=== PATIENT | female | born 1995 | race Caucasian/White ===

== ENCOUNTER 2016-12-20 14:55 | Emergency (ER) ==
[2016-12-20] MEDS ORDERED: NS 1,000 ML IV ONE (15:10)
[2016-12-20] MEDS ORDERED: ZOFRAN IV ONE (15:10)
[2016-12-20] MEDS ORDERED: MORPHINE IV ONE (15:21)
--- NOTE | 2016-12-20 15:26 | PROVIDER DOCUMENTATION ---
HPI-Abdominal Pain/GI Problem - General Chief Complaint: Abdominal Pain Stated Complaint: ABD PAIN/PELVIC PAIN Time Seen by Provider: 12/20/16 15:10 Source: patient Allergies/Adverse Reactions: Patient Allergies Allergy/AdvReac Type Severity Reaction Status Date / Time No Known Allergies Allergy Verified 12/20/16 15:15 Home Medications: Home Medication List Medication Instructions Recorded Confirmed Last Taken Type Norethindrone [Michelle] 0.35 mg PO DAILY 12/20/16 12/20/16 12/19/16 23:00 History - History of Present Illness-ABD Nature of Presenting Problems: Reports General abd pain x 2 hours with nausea. Last BM earlier today. Changed BCP two months ago. Denies diarrhea,v,rectal bleeding. Abdominal Pain Onset Location: reports: generalized abdomen Quality of Pain: reports: aching Severity in ED: reports: moderate Onset/Duration: reports: 2 days ago Timing: reports: getting worse Last BM: this morning Dark Stools Present?: reports: none noticed Rectal Bleeding: reports: none Rectal Pain: reports: none Emesis Description: reports: none Bruising or Bleeding Gums?: No Similar Symptoms Previously?: No Recently seen or treated by another doctor?: No Review of Systems - Adult - REVIEW OF SYSTEMS - ADULT Constitutional: denies: chills, fever, fatique Eyes: reports: no symptoms reported Ears, Nose, Mouth & Throat: denies: ear pain, sinus problem, throat pain Cardiovascular: reports: no symptoms reported Respiratory: reports: no symptoms reported Gastrointestinal: reports: abdominal pain, nausea. denies: diarrhea, poor appetite, vomiting Genitourinary: reports: no symptoms reported Musculoskeletal: reports: no symptoms reported Integumentary: reports: no symptoms reported Neurological: reports: no symptoms reported Psychiatric: reports: no symptoms reported Endocrine: reports: no symptoms reported Hematologic/Lymphatic: reports: no symptoms reported Allergic/Immunologic: reports: no symptoms reported All Other Systems: Reviewed and Negative Past History - Adult - PAST MEDICAL HISTORY-ADULT Review of Records: reports: Nursing Assessment Review, Medications Reviewed Major Childhood Illnesses: reports: denies history - IMMUNIZATION STATUS Childhood Immunizations: See Nurse Assessment Flu Vaccine: See Nurse Assessment - SOCIAL HISTORY Smoking: less than 1 pack/day Provider spent 3-5 mins advising pt. on dangers of tobacco.: Discussed manners to quit use, and f/u contacts for add'l counseling. Substance Use: none/never Physical Exam-General - PHYSICAL EXAM-ADULT Initial Vital Signs Reviewed: Yes - CONSTITUTIONAL General Appearance: appears well, alert, no apparent distress - EYES Eyes: PERRL/EOMI - NECK Neck: non-tender, full range of motion, supple, normal inspection - RESPIRATORY Respiratory: chest non-tender, lungs clear, normal breath sounds - CARDIOVASCULAR Cardiovascular: regular rate, rhythm, no edema, no gallop, no JVD, no murmur - GASTROINTESTINAL (ABDOMEN) Abdominal Exam: normal bowel sounds, soft, no organomegaly, no pulsatile mass, guarding (RLQ), tenderness (ttp Lower abd moderate to severe rlq and llq). negative: distended - MUSCULOSKELETAL Extremity: normal range of motion, non-tender - SKIN Integumentary: normal color, normal turgor, warm/dry - PSYCHIATRIC Psych/Mental Status: normal mood/affect, normal thought content, normal thought process, oriented x 3 Progress - PLAN OF CARE/RESULTS Progress/Plan/Lab Results: Orders Category Date Time Status Saline Loc DIRECTED Care 12/20/16 15:10 Active NPO Diet 12/20/16 15:10 Active AMYLASE [CHEM] Stat Lab 12/20/16 15:25 Ordered CBC WITH ELECTRONIC DIFF [HEME] Stat Lab 12/20/16 15:25 Ordered COMPREHENSIVE METABOLIC PANEL [CHEM] Stat Lab 12/20/16 15:25 Ordered LIPASE [CHEM] Stat Lab 12/20/16 15:25 Ordered MAGNESIUM [CHEM] Stat Lab 12/20/16 15:25 Ordered TEST-URINE [PREG] Stat Lab 12/20/16 15:11 Uncollected PROTIME WITH INR [COAG] Stat Lab 12/20/16 15:25 Ordered PTT [COAG] Stat Lab 12/20/16 15:25 Ordered URINALYSIS W/POSS RFLX CULT [URINALYSIS] Stat Lab 12/20/16 15:10 Uncollected 0.9% Sodium Chloride Inj [Ns] 1,000 ml Med 12/20/16 15:10 Active IV 999 mls/hr Morphine Med 12/20/16 15:21 Discontinued 4 mg IV NOW ONE Ondansetron [Zofran] Med 12/20/16 15:10 Discontinued 4 mg IV NOW ONE Vital Signs - 24 hr 12/20/16 15:07 Temperature 98.1 F Pulse Rate 84 Respiratory 20 Rate Blood Pressure 101/63 O2 Sat by Pulse 100 Oximetry Laboratory Tests 12/20/16 12/20/16 12/20/16 15:22 15:22 15:22 WBC 12.89 H RBC 4.36 Hgb 13.3 Hct 39.3 MCV 90.1 MCH 30.5 MCHC 33.8 RDW Std Deviation 14.2 Plt Count 242 MPV 10.8 H Immature Gran % (Auto) 0.2 Neut % (Auto) 73.3 Lymph % (Auto) 17.4 L [place] % (Auto) 7.5 Eos % (Auto) 1.4 Baso % (Auto) 0.2 Immature Gran # (Auto) 0.02 Neut # (Auto) 9.46 H Lymph # (Auto) 2.24 [place] # (Auto) 0.97 H Eos # (Auto) 0.18 Baso # (Auto) 0.02 PT 10.7 INR 1.01 PTT (Actin FS) 23.2 Sodium 140 Potassium 4.0 Chloride 105 Carbon Dioxide 23 L Anion Gap 12 BUN 10 Creatinine 0.7 Estimated GFR/1.73 m2 > 60 BUN/Creatinine Ratio 14 Glucose 98 Calculated Osmolality 278 Calcium 9.1 Magnesium 1.8 Total Bilirubin 0.60 AST 26 ALT 34 Alkaline Phosphatase 54 Total Protein 6.6 Albumin 3.9 Globulin 2.7 Albumin/Globulin Ratio 1.4 Amylase 62 Lipase 27 Urine Source Urine Color Urine Turbidity Urine pH Ur Specific [place] Urine Protein Ur Glucose (Stick) Ur Ketones (Stick) Urine Blood Urine Nitrite Urine Bilirubin Urobilinogen Dipstick Urine Leukocytes Urine WBC (Auto) Urine RBC (Auto) U Epithel Cells (Auto) Urine Bacteria (Auto) Urine Test 12/20/16 12/20/16 16:12 16:12 WBC RBC Hgb Hct MCV MCH MCHC RDW Std Deviation Plt Count MPV Immature Gran % (Auto) Neut % (Auto) Lymph % (Auto) [place] % (Auto) Eos % (Auto) Baso % (Auto) Immature Gran # (Auto) Neut # (Auto) Lymph # (Auto) [place] # (Auto) Eos # (Auto) Baso # (Auto) PT INR PTT (Actin FS) Sodium Potassium Chloride Carbon Dioxide Anion Gap BUN Creatinine Estimated GFR/1.73 m2 BUN/Creatinine Ratio Glucose Calculated Osmolality Calcium Magnesium Total Bilirubin AST ALT Alkaline Phosphatase Total Protein Albumin Globulin Albumin/Globulin Ratio Amylase Lipase Urine Source CLEAN CATCH Urine Color YELLOW Urine Turbidity CLEAR Urine pH 6.5 Ur Specific [place] 1.021 Urine Protein NEGATIVE Ur Glucose (Stick) NEGATIVE Ur Ketones (Stick) NEGATIVE Urine Blood NEGATIVE Urine Nitrite NEGATIVE Urine Bilirubin NEGATIVE Urobilinogen Dipstick NORMAL Urine Leukocytes NEGATIVE Urine WBC (Auto) <10 Urine RBC (Auto) <10 U Epithel Cells (Auto) <10 Urine Bacteria (Auto) 1+ Urine Test NEGATIVE Pt and MD discussed that if pt started experiencing any more distress or discomfort that now or any abnormal symptoms to return to ER other [facility] follow up with [facility] DEVELOPMENT MANAGER pt agreed - CT/MRI 1 CT Study: Abdomen Impression: Abnormal (?ruptured right ovarian cyst or PID; normal appendix) Departure - Departure Time of Disposition Order: 17:34 DIAGNOSIS: Abdominal pain Qualifiers: Abdominal location: right lower quadrant Qualified Code(s): R10.31 - Right lower quadrant pain Ovarian cyst Qualifiers: Laterality: bilateral Qualified Code(s): N83.201 - Unspecified ovarian cyst, right side; N83.202 - Unspecified ovarian cyst, left side Disposition: HOME 01 Certified Medical Emergency: Emergent Condition: Stable Additional Instructions: Follow up with ED Follow Up Instructions: You have been treated by a care provider in the Emergency Department. These instructions are being provided to you so you can have an understanding of how to care for yourself upon discharge. Upon discharge from the Emergency Department, you are responsible for making arrangements for follow-up care by a physician of your choice. Take all prescribed medications as directed. Return to the Emergency Department immediately for any new or worsening symptoms. You may call the Physician Referral phone number at [phone] to obtain a list of Physicians who are taking new patients. Referrals: None,PCP [Primary Care Provider] - Daniel Cazares MD [STAFF PHYSICIAN] - Attestation - Scribe Verification/Attestation Scribe:: Susan Zhang Acting as Scribe for:: Shine Sanchez Scribe documention review:: This chart was documented by a scribe and accurately reflects the service the provider performed and the decisions made by the provider.
[2016-12-20 15:31] LABS: MANUAL DIFF NEEDED? NO
[2016-12-20] MEDS ORDERED: DILAUDID IV ONE ×2 (15:35→15:40)
[2016-12-20] MEDS ORDERED: DILAUDID ONE (15:36)
[2016-12-20 15:40] LABS: BASO% 0.2 % (0.0-0.8); EOS# 0.18 X1000 (0.0-0.7); EOS% 1.4 % (0.0-10.0); HEMATOCRIT 39.3 % (37.0-47.0); HEMOGLOBIN 13.3 g/dL (12.0-16.0); IMM GRAN# 0.02 X1000 (0.0-0.04); IMM GRAN% 0.2 % (0.0-0.5); LYMPH# 2.24 X1000 (1.2-3.4); LYMPH% 17.4 % (20.5-51.1); MCH 30.5 PG (27-31); MCHC 33.8 g/dL (33-37); MCV 90.1 FL (81-99); MONO# 0.97 X1000 (0.11-0.59); MONO% 7.5 % (1.7-9.3); MPV 10.8 FL (7.4-10.4); NEUT% 73.3 % (42.2-75.2); PLT 242 X1000 (130-400); RBC 4.36 XMIL (4.2-5.4)
[2016-12-20 16:01] LABS: AGAP 12; ALBUMIN 3.9 g/dL (3.5-5.0); ALKALINE PHOSPHATASE 54 U/L (32-104); AMYLASE 62 U/L (20-200); BUN 10 mg/dL (8-22); CALCIUM 9.1 mg/dL (8.8-10.2); CHLORIDE 105 mmol/L (98-107); COSMO 278; GOT 26 U/L (10-30); GPT 34 U/L (10-36); LIPASE 27 U/L (13-60); MAGNESIUM 1.8 mg/dL (1.5-2.7); SODIUM 140 mmol/L (136-145); TCO2 23 mmol/L (25-35); TOTAL PROTEIN 6.6 g/dL (6.3-8.3)
[2016-12-20 16:07] LABS: INR 1.01; PROTIME 10.7 Seconds (9.2-11.7); PTT 23.2 Seconds (22.0-36.0)
[2016-12-20 16:13] LABS: URINE CULTURE NEEDED? NO; URINE MICRO REVIEW NEEDED? NO; URINE SOURCE CLEAN CATCH
[2016-12-20 16:20] LABS: BILIRUBIN URINE NEGATIVE (NEGATIVE); BLOOD URINE NEGATIVE (NEGATIVE); COLOR YELLOW; GLUCOSE URINE NEGATIVE (NEGATIVE); LEUKOCYTES URINE NEGATIVE (NEGATIVE); NITRITE URINE NEGATIVE (NEGATIVE); PH URINE 6.5; PROTEIN URINE NEGATIVE (NEGATIVE); SP GRAVITY URINE 1.021; TURBIDITY URINE CLEAR (CLEAR); UROBILINOGEN URINE NORMAL (NORMAL)
[2016-12-20 16:22] LABS: UR EPITHELIAL CELLS <10 /HPF (<10); URINE BACTERIA 1+ /HPF; URINE RBC <10 /HPF (<10); URINE WBC <10 /HPF (<10)
[2016-12-20 17:53] VITALS: BP 101/59
--- NOTE | 2016-12-20 18:06 | Diag Imaging Result Document ---
PROCEDURE NAME: CT ABD/PELVIS W/ IV CONT ONLY - 12/20/2016 CT OF THE ABDOMEN WITH INTRAVENOUS CONTRAST: FINDINGS: The visualized portion of the chest is unremarkable. The spleen is normal in appearance. The adrenal glands are not enlarged. The liver is unremarkable. There are no gallstones. The pancreas is within normal limits. The kidneys are without evidence of hydronephrosis or mass. There is some stool in the colon. The small bowel is not distended. There is a small amount of fluid in the right paracolic gutter near the edge of the liver. The appendix is not distended. CT OF THE PELVIS WITH INTRAVENOUS CONTRAST: FINDINGS: Both ovaries are apparently enlarged with a more discrete-appearing cyst present in the left ovary measuring up to 2.8 cm. The right ovary is markedly inhomogeneous in density and may measure as much as 3.5 cm. There is fluid throughout the pelvis measuring up to 19 Hounsfield units in density. IMPRESSION: Possibility of tuboovarian abscess and pelvic inflammatory disease cannot be excluded. Alternately, there may be a ruptured ovarian cyst. Clinical correlation is recommended. No masses were present in the ovaries at the time of the previous study of 10/11/2016.
== END 2016-12-20 17:53 | disposition home or self-care (01) ==
LOC: ED 14:55
DX: N83.202 Unspecified ovarian cyst, left side (principal); R10.32 Left lower quadrant pain; R10.31 Right lower quadrant pain; R11.0 Nausea; F17.210 Nicotine dependence, cigarettes, uncomplicated; Z71.6 Tobacco abuse counseling
CPT/HCPCS: 74177; 80053; 81001; 81025; 82150; 83690; 83735; 85025; 85610; 85730; J1170; J2270; J2405; J7030; Q9967